=== PATIENT | female | born 1950 | race Caucasian/White ===

== ENCOUNTER 2018-10-14 08:41 | Day surgery (SDC) | payer MEDICARE, OTHER ==
[2018-10-13 16:51] LABS: HEMATOCRIT 31.4 % (36.0-47.0); HEMOGLOBIN 10.5 g/dL (12.0-15.5); MEAN CORPUSCULAR HEMOGLOBIN 29.4 pg (27.0-33.4); MEAN CORPUSCULAR HGB CONC 33.5 g/dL (32.0-36.0); MEAN CORPUSCULAR VOLUME 88 fl (80-97); PLATELET COUNT 325 10^3/uL (150-450); RED BLOOD COUNT 3.58 10^6/uL (3.72-5.28); RED CELL DISTRIBUTION WIDTH 13.9 % (11.5-14.0); WHITE BLOOD COUNT 6.9 10^3/uL (4.0-10.5)
[2018-10-13 16:55] LABS: INTERNATIONAL RATION (INR) 1.03
[2018-10-13 16:56] LABS: PARTIAL THROMBOPLASTIN TIME 34.6 SEC (23.5-35.8)
[2018-10-13 17:01] LABS: APPEARANCE,URINE CLEAR; BILIRUBIN,URINE NEGATIVE (NEGATIVE); COLOR,URINE YELLOW; GLUCOSE, URINE NEGATIVE (NEGATIVE); KETONES,URINE NEGATIVE (NEGATIVE); LEUKOCYTE ESTERASE,URINE NEGATIVE (NEGATIVE); NITRITE,URINE NEGATIVE (NEGATIVE); PROTEIN,URINE NEGATIVE (NEGATIVE); URINE SPECIFIC GRAVITY 1.005; UROBILINOGEN,URINE NEGATIVE mg/dL (<2.0)
[~2018-10-14 08:41] MED LIST: CEFAZOLIN 1 GM/D5W RTU 1 GM/50 ML RTUPB IV PRN; FENTANYL CITRATE INJ/PF 100 MCG/2 ML AMPUL ONE; MIDAZOLAM 2 MG/2 ML INJ ONE; PROPOFOL INJ 200 MG/20 ML VIAL IV ONE
[2018-10-14] MEDS ORDERED: LIDOCAINE 1% INJ-PF (10 MG/ML) 30 ML SDV ONE ×2 (10:13→10:44)
[2018-10-14] MEDS ORDERED: BUPIVACAINE HCL 0.5%-EPI 1:200000 INJ/PF 30 ML VIAL ONE (10:44)
[2018-10-14] MEDS ORDERED: SODIUM BICARBONATE 4.2% INJ (2.5 MEQ/5 ML) VIAL ONE (10:44)
[2018-10-14] MEDS ORDERED: CEFAZOLIN 1 GM/D5W RTU 1 GM/50 ML RTUPB IV ONE (10:45)
[2018-10-14] MEDS ORDERED: PROMETHAZINE HCL INJ 25 MG/1 ML VIAL IV PRN ×2 (11:44)
[2018-10-14] MEDS ORDERED: ONDANSETRON HCL INJ/PF 4 MG/2 ML SDV IV PRN (11:44)
[2018-10-14] MEDS ORDERED: DIPHENHYDRAMINE HCL 50 MG/ML VIAL IV PRN (11:44)
[2018-10-14] MEDS ORDERED: MEPERIDINE HCL/PF INJ 25 MG/1 ML DISP.SYRIN IV PRN (11:44)
[2018-10-14] MEDS ORDERED: FENTANYL CITRATE INJ/PF 100 MCG/2 ML AMPUL IV PRN ×3 (11:44)
[2018-10-14] MEDS ORDERED: MORPHINE SULFATE 10 MG/ML INJ IV PRN (11:44)
[2018-10-14] MEDS ORDERED: OXYCODONE HCL IR 5 MG TABLET PO PRN (12:45)
[2018-10-14] MEDS ORDERED: OXYCODONE HCL SR 10 MG TABLET PO ONE (13:08)
[2018-10-14] MEDS ORDERED: OXYCODONE HCL IR 5 MG TABLET ONE (13:11)
--- NOTE | 2018-10-14 15:51 | RADIOLOGY REPORT (SQ) ---
EXAM DESCRIPTION: NO CHG FLUORO; SACRUM AND COCCYX COMPLETED DATE/TIME: 10/14/2018 3:11 pm REASON FOR STUDY: SACROPLASTY ASST WITH FLUORO IN OR S32.10XA UNSP FRACTURE OF SACRUM, INIT ENCNTR FOR CLOSED FRA COMPARISON: None. FLUOROSCOPY TIME: 2.2 minutes 28 Images saved to PACS TECHNIQUE: Intra-operative images acquired during surgical procedure to evaluate progress. NUMBER OF IMAGES: 28 LIMITATIONS: None. FINDINGS: Bilateral sacral kyphoplasty. IMPRESSION: IMAGE(S) OBTAINED DURING PROCEDURE. COMMENT: Quality ID [id number]: Final reports for procedures using fluoroscopy that document radiation exp osure indices, or exposure time and number of fluorographic images (if radiation exposure indices are not available) Please consult full operative report of the attending physician for description of the procedure. TECHNICAL DOCUMENTATION: JOB ID: [id number] [employer]- All Rights Reserved Reading location - IP/workstation name: [email or web address]
--- NOTE | 2018-10-14 15:51 | RADIOLOGY REPORT (SQ) ---
EXAM DESCRIPTION: NO CHG FLUORO; SACRUM AND COCCYX COMPLETED DATE/TIME: 10/14/2018 3:11 pm REASON FOR STUDY: SACROPLASTY ASST WITH FLUORO IN OR S32.10XA UNSP FRACTURE OF SACRUM, INIT ENCNTR FOR CLOSED FRA COMPARISON: None. FLUOROSCOPY TIME: 2.2 minutes 28 Images saved to PACS TECHNIQUE: Intra-operative images acquired during surgical procedure to evaluate progress. NUMBER OF IMAGES: 28 LIMITATIONS: None. FINDINGS: Bilateral sacral kyphoplasty. IMPRESSION: IMAGE(S) OBTAINED DURING PROCEDURE. COMMENT: Quality ID [id number]: Final reports for procedures using fluoroscopy that document radiation exp osure indices, or exposure time and number of fluorographic images (if radiation exposure indices are not available) Please consult full operative report of the attending physician for description of the procedure. TECHNICAL DOCUMENTATION: JOB ID: [id number] [employer]- All Rights Reserved Reading location - IP/workstation name: [email or web address]
--- NOTE | 2018-10-14 16:19 | OPERATIVE REPORT E ---
Operative Report NAME: FERNANDO BONILLA : 1950 AGE: 68Y DATE OF SURGERY: 10/14/2018 ROOM: PREOPERATIVE DIAGNOSIS: Sacral insufficiency fracture. POSTOPERATIVE DIAGNOSIS: Sacral insufficiency fracture. OPERATION: Sacroplasty with balloon. SURGEON: CINDY ABAD M.D. RIVET MAKER: Luis Angel Castillo M.D. ANESTHESIA: MAC. COMPLICATIONS: None. PROCEDURE IN DETAIL: After obtaining informed consent and advising the patient of the risks and benefits including serious neurological injury, bleeding, infection, paralysis, *------*, , inability to adequately treat pain. She was taken to the operating room suite. She was placed comfortably in the prone position as determined by Anesthesia. She was prepped and draped. A C-arm was brought in for lateral and AP visualization and draped appropriately. Beginning on the right, the SI joint line as well as the S2 and S3 foramen were identified. A suitable skin entry site was identified, anesthetized with 1% lidocaine with bicarbonate. A small incision was made. A small incision was made. Xpress trocar was then advanced under sterile fluoroscopic use in AP and lateral positions. Entering lateral to the neural foramen and medial to the SI joint it would move on serial movement, paying attention to stay lateral to the neural foramen and moving superiorly within the lateral views. The drill was then placed and removed followed by the balloon. The procedure was then repeated on the left, being sure to be lateral to the neural foramen and medial to the joint line. Once the balloons were adequately inflated the balloons were then withdrawn and the trocars were pulled back to inflate again at the S2 level as it had been at the S1 level. The trocars were then readvanced to the S1 level in both the left and right side *------* serial fluoroscopic views. The right trocar was then removed and after the balloons had been sufficiently inflated, the cement mixture was then mixed and using the *------* tubes beginning on the right filling was performed. A total of 2.8 mL was placed on the right side and a total of 2.2 mL on the left side. After the *------* tubes were removed, dilators were placed into the trocars. The cement was allowed to harden prior to removing the trocars. It was done sequentially in the S1 and S2 on both the left and right side for a total fill. The cement was allowed to harden prior to removing the trocars. Everything was then cleaned, sterile dressings placed, and the patient was taken to the PACU for further postoperative care and monitoring. DICTATING PHYSICIAN: CINDY ABAD M.D. [id number] PHY#: [id number] ID: [id number] JOB#: [id number] ACCT: [id number] cc:CINDY ABAD M.D. >
[2018-10-14 16:46] VITALS: BP 140/57
== END 2018-10-14 14:10 | disposition home or self-care (01) ==
LOC: OROUT 08:41
PROVIDERS: ATTEND Student in an Organized Health Care Education/Training Program
DX: S32.10XA Unspecified fracture of sacrum, initial encounter for closed fracture (principal); S32.009A Unspecified fracture of unspecified lumbar vertebra, initial encounter for closed fracture; X58.XXXA Exposure to other specified factors, initial encounter; G89.11 Acute pain due to trauma; M54.12 Radiculopathy, cervical region; I10 Essential (primary) hypertension; F32.9 Major depressive disorder, single episode, unspecified; Z79.899 Other long term (current) drug therapy
CPT/HCPCS: 0201T; 36415; 85027; 85610; 85730; 81001; 72220; C1713; Q9966; J2250; J0690; J3010; J3490; J2704; A9270; 630